=== PATIENT | male | born 1995 | race Caucasian/White ===

== ENCOUNTER 2017-07-24 23:41 | Inpatient (IN) | payer MEDICAID, OTHER ==
[~2017-07-24] VITALS: Ht 182.9 cm; Wt 70.8 kg
[~2017-07-24 23:41] MED LIST: NAPR550 PO
[2017-07-24 23:43] VITALS: O2SAT 100
[2017-07-25] VITALS (18 sets, daily range): BP systolic 100–155; BP diastolic 46–66; PULSE 80–125; RESP 14–20; TEMP 97.7–100.4; O2SAT 100
[2017-07-25 00:05] LABS: I-STAT POTASSIUM 3.2 MMOL/L (3.5-4.9); I-STAT SODIUM 141 MMOL/L (138-146)
[2017-07-25 00:10] LABS: AUTOMATED NEUTROPHIL # 11.1 TH/MM3 (1.8-7.7); BASOPHIL % 0.1 % (0.0-2.0); EOSINOPHIL % 0.2 % (0.0-4.0); HEMATOCRIT 33.6 % (39.0-51.0); LYMPHOCYTE # 3.1 TH/MM3 (1.0-4.8); MEAN CELL VOLUME 91.5 FL (80.0-100.0); MEAN CORPUSCULAR HEMOGLOBIN 33.9 PG (27.0-34.0); MONO % 3.5 % (0.0-8.0); NEUT % 75.2 % (16.0-70.0); PLATELET COUNT 158 TH/MM3 (150-450); RED BLOOD COUNT 3.67 MIL/MM3 (4.50-5.90); RED CELL DISTRIBUTION WIDTH 12.1 % (11.6-17.2); WHITE BLOOD COUNT 14.8 TH/MM3 (4.0-11.0)
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
[2017-07-25 00:15] LABS: APTT (PATIENT) 23.9 SEC (24.3-30.1); INTERNATIONAL NORMALIZED RATIO 1.3 RATIO; PROTHROMBIN TIME - PATIENT 13.3 SEC (9.8-11.6)
[2017-07-25 00:17] LABS: HEMO FLAGS AUTO DIFF; MEAN CORPUSCULAR HGB CONC 37.1 % (32.0-36.0)
[2017-07-25] MEDS ORDERED: ceFAZolin 2 GM PREMIX 50 ML ONE (00:21)
[2017-07-25] MEDS ORDERED: HEPARIN SODIUM - SQ 10,000 UNITS/ML VIAL ONE (00:21)
[2017-07-25 00:26] LABS: ALCOHOL LESS THAN 3 MG/DL (0-5)
[2017-07-25] MEDS ORDERED: IOHEXOL 350 MG/ML 10 ML VIAL (for RAD DIAG) IVCONTRAST ONE (00:42)
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
[2017-07-25] MEDS ORDERED: SODIUM BICARBONATE 8.4% INJ 50 MEQ/50 ML SYR ONE (01:15)
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
[2017-07-25] MEDS ORDERED: SODIUM BICARBONATE 8.4% INJ 100 ML ONE (01:17)
[2017-07-25 01:19] LABS: BLOOD GAS BASE EXCESS -8.7 mmol/L (-2-2); BLOOD GAS HCO3 17 mmol/L (22-26); BLOOD GAS METHEMOGLOBIN 1.2 % (0-2); BLOOD GAS O2 HGB SATURATION 97 % (90-100); BLOOD GAS OXYGEN CONTENT 12.6 Vol % (12.0-20.0); BLOOD GAS PCO2 37 mmHg (38-42); BLOOD GAS PO2 291 mmHg (61-120); BLOOD GAS TOTAL HGB 8.7 G/DL (12.0-16.0); TEMP CORR TO 98.6
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
[2017-07-25 01:20] LABS: CRITICAL VALUE YES; OXYGEN DEVICE VENTILATOR; VENT SETTINGS OR SETTING
[2017-07-25 01:20] LABS: PLATELET ESTIMATE SMEAR NORMAL (NORMAL); PLATELET MORPHOLOGY NORMAL (NORMAL); SCAN/DIFF AUTO DIFF CONFIRMED
[2017-07-25 01:21] LABS: FIO2 60 %
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
[2017-07-25] MEDS ORDERED: SODIUM CHLORIDE 0.9% FLUSH 10 ML FLUSH IV FLUSH PRN (01:45)
[2017-07-25] MEDS ORDERED: Post-op Orders (for Pharmacy) XX ONE (01:45)
[2017-07-25] MEDS ORDERED: NALOXONE HCL 0.4 MG/ML AMP IV PUSH PRN (01:45)
[2017-07-25] MEDS ORDERED: PROPOFOL 1000 MG/100 ML INJ 100 ML IV PRN (01:45)
[2017-07-25] MEDS ORDERED: fentaNYL DRIP 250 ML IV PRN (01:45)
[2017-07-25] MEDS ORDERED: PROPOFOL 500 MG/50 ML INJ 50 ML ONE (02:04)
[2017-07-25] MEDS: metroNIDAZOLE 500 MG INJ 100 ML IV SCH ×3 (02:24→17:40)
[2017-07-25] MEDS: fentaNYL 2,500 MCG/NS 250 ML IV PRN ×2 (02:25→14:15)
[2017-07-25] MEDS: PROPOFOL 1000 MG/100 ML IV PRN ×3 (02:25→21:00)
[2017-07-25] MEDS: LACTATED RINGER'S 1000 ML INJ 1,000 ML IV SCH ×3 (02:26→21:08)
[2017-07-25] MEDS: PANTOPRAZOLE SODIUM 40 MG VIAL IV PUSH SCH (02:26)
--- NOTE | 2017-07-25 02:29 | RADRPT ---
EXAM DATE/TIME: 07/25/2017 01:34 [facility] COMPARISON: No previous studies available for comparison. INDICATIONS : Evaluate for foreign body. Emergency abdominal surgery without instrument count. MEDICAL HISTORY : None. SURGICAL HISTORY : None. ENCOUNTER: Initial ACUITY: 1 day PAIN SCORE: Non-responsive. LOCATION: Bilateral abdomen FINDINGS: 2 new clips and a Felix-Galindo drain in the left upper quadrant. Gastric tube tip and side-port pro ject within the stomach. Multiple skin addie from vertical midline incision. Right femoral cathet er tip at the inferior L4 level. No dilated loops of small or large bowel. The visualized lower cameron gs are clear. CONCLUSION: Postsurgical findings from splenectomy. No retained instruments seen. Humble Guillen MD on July 25, 2017 at 2:27 Board Certified Radiologist. This report was verified electronically.
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
[2017-07-25 03:48] LABS: AUTOMATED NEUTROPHIL # 15.6 TH/MM3 (1.8-7.7); BASOPHIL % 0.1 % (0.0-2.0); EOSINOPHIL % 0.2 % (0.0-4.0); HEMATOCRIT 25.2 % (39.0-51.0); LYMPH % 7.6 % (9.0-44.0); LYMPHOCYTE # 1.4 TH/MM3 (1.0-4.8); MEAN CELL VOLUME 88.7 FL (80.0-100.0); MEAN CORPUSCULAR HEMOGLOBIN 30.8 PG (27.0-34.0); MEAN CORPUSCULAR HGB CONC 34.7 % (32.0-36.0); MONO % 6.8 % (0.0-8.0); NEUT % 85.3 % (16.0-70.0); PLATELET COUNT 81 TH/MM3 (150-450); RED BLOOD COUNT 2.84 MIL/MM3 (4.50-5.90); RED CELL DISTRIBUTION WIDTH 13.4 % (11.6-17.2); WHITE BLOOD COUNT 18.3 TH/MM3 (4.0-11.0)
[2017-07-25 03:50] LABS: HEMO FLAGS AUTO DIFF
[2017-07-25 03:56] LABS: INTERNATIONAL NORMALIZED RATIO 1.5 RATIO; PROTHROMBIN TIME - PATIENT 15.2 SEC (9.8-11.6)
[2017-07-25 04:15] LABS: BICARBONATE 27.8 MEQ/L (21.0-32.0); POTASSIUM 4.2 MEQ/L (3.5-5.1)
--- NOTE | 2017-07-25 04:19 | RADRPT ---
EXAM DATE/TIME: 07/25/2017 02:27 [facility] COMPARISON: CHEST SINGLE AP, July 24, 2017, 23:40. INDICATIONS : Central line, left chest tube placement MEDICAL HISTORY : None. SURGICAL HISTORY : None. ENCOUNTER: Initial ACUITY: 1 day PAIN SCORE: Non-responsive. LOCATION: Bilateral chest FINDINGS: ET tube tip although the leo. Gastric tube traverses the field of view heart chest projects in th e mid upper chest. Left subclavian sheath in place. No evidence pneumothorax. The lungs are symmet rically aerated and clear. The heart is normal size. CONCLUSION: Left chest drainage tube in place. No pneumothorax seen. Humble Guillen MD on July 25, 2017 at 4:17 Board Certified Radiologist. This report was verified electronically.
[2017-07-25 04:30] LABS: BANDS 26 % (0-6); METAMYELOCYTES 2 % (0-1); NEUTROPHIL # MANUAL DIFF 16.1 TH/MM3 (1.8-7.7); POLYS (SEG NEUTROPHILS) 60 % (16-70); WBC DIFF SAMPLE 100
[2017-07-25 04:31] LABS: PLATELET ESTIMATE SMEAR LOW (NORMAL); PLATELET MORPHOLOGY ENLARGED (NORMAL); SCAN/DIFF FINAL DIFF MANUAL
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
[2017-07-25] MEDS ORDERED: SODIUM PHOSPHATE INJ 30 MMOL in SODIUM CHLOR 0.9% 250 ML INJ 240 ML IV PRN (06:45)
[2017-07-25] MEDS ORDERED: POTASSIUM PHOSPHATE INJ 30 MMOL in SODIUM CHLOR 0.9% 250 ML INJ 250 ML IV PRN (06:45)
[2017-07-25] MEDS ORDERED: POTASSIUM CHLOR 40 MEQ PREMIX 100 ML IV PRN ×2 (06:45)
[2017-07-25] MEDS ORDERED: POTASSIUM CHLOR 20 MEQ PREMIX 100 ML IV PRN ×2 (06:45)
[2017-07-25] MEDS ORDERED: POTASSIUM PHOSPHATE MONOBASIC 500 MG TAB PO/TUBE PRN (06:45)
[2017-07-25] MEDS ORDERED: PHENYLEPHRINE HCL 10 MG/ML VIAL ONE (06:45)
[2017-07-25] MEDS ORDERED: MAGNESIUM SULFATE INJ 4 GM in SODIUM CHLORIDE 0.9% INJ 92 ML IV PRN (06:45)
[2017-07-25] MEDS ORDERED: POTASSIUM PHOSPHATE MONOBASIC 500 MG TAB PO PRN (06:45)
[2017-07-25] MEDS ORDERED: MAGNESIUM OXIDE 400 MG TAB PO PRN (06:45)
[2017-07-25] MEDS ORDERED: MAGNESIUM SULFATE INJ 2 GM in SODIUM CHLORIDE 0.9% INJ 96 ML IV PRN (06:45)
[2017-07-25] MEDS ORDERED: POTASSIUM CHLORIDE 20 MEQ PWD PACKET PO PRN (06:45)
[2017-07-25 07:02] LABS: HEMATOCRIT 28.6 % (39.0-51.0)
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
[2017-07-25 07:15] LABS: REVIEW FLAG FINAL
[2017-07-25 07:58] LABS: BACTERIA, URINE RARE /hpf; BLOOD, URINE MOD (NEG); COMMENT (UR) CATH-CULTURE IND; CULTURE IF INDICATED CATH CULTURE IND; GLUCOSE,URINE NEG (NEG); HYALINE CAST, URINE 4 /lpf (RARE); KETONE, URINE NEG (NEG); MUCUS URINE FEW /lpf (OCC); NITRITE,URINE NEG (NEG); PH, URINE 5.5 (5.0-8.5); SQUAMOUS EPITHELIAL CELL URINE <1 /hpf (0-5); URINE COLOR YELLOW (YELLW/STRAW)
[2017-07-25] MEDS ORDERED: SODIUM CHLOR 0.9% 1000 ML INJ 1,000 ML IV SCH ×2 (08:15→14:15)
[2017-07-25 08:24] LABS: BICARBONATE 25.2 MEQ/L (21.0-32.0); MAGNESIUM 1.4 MG/DL (1.5-2.5); POTASSIUM 4.6 MEQ/L (3.5-5.1); TOTAL BILIRUBIN ADULT 0.3 MG/DL (0.2-1.0)
[2017-07-25] MEDS: SODIUM CHLORIDE 0.9% FLUSH 10 ML FLUSH IV FLUSH SCH ×2 (09:00→20:17)
[2017-07-25] MEDS ORDERED: RESP: ALBUTEROL 2.5 MG/IPRATROPIUM 0.5 MG NEB (PRN) NEB (09:15)
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
[2017-07-25] MEDS ORDERED: PHENYLEPH/NS 1000 MCG/10 ML SYR IV ONE (12:00)
[2017-07-25] MEDS ORDERED: ROCURONIUM INJ 50 MG/5 ML SYRINGE IV PUSH ONE (12:00)
[2017-07-25] MEDS ORDERED: MIDAZOLAM HCL 2 MG/2 ML VIAL IV ONE (12:00)
[2017-07-25] MEDS ORDERED: PROPOFOL 200 MG/20 ML AMP IV ONE (12:00)
[2017-07-25] MEDS ORDERED: SUCCINYLCHOLINE CHLORIDE 100 MG/5 ML SYRINGE IV PUSH ONE (12:00)
[2017-07-25] MEDS ORDERED: NORMOSOL R INJ 2,000 ML IV ONE (12:00)
[2017-07-25] MEDS ORDERED: LIDOCAINE HCL 1% PF 5 ML SYRINGE OTHER ONE (12:00)
[2017-07-25] MEDS: RESP: ALBUTEROL 2.5 MG/IPRATROPIUM 0.5 MG NEB (SCH) NEB ×3 (12:31→20:09)
--- NOTE | 2017-07-25 13:30 | RADRPT ---
EXAM DATE/TIME: 07/25/2017 11:38 [facility] COMPARISON: No previous studies available for comparison. INDICATIONS : Laceration MEDICAL HISTORY : None. SURGICAL HISTORY : None. ENCOUNTER: Initial ACUITY: 2 days PAIN SCORE: Non-responsive. LOCATION: Left ankle FINDINGS: Three view exam was performed of the left ankle. The bony structures are in normal alignment. No ev idence of fracture, dislocation, or significant soft tissue swelling. The ankle mortise is intact. No radiopaque foreign bodies are seen. Bony mineralization is normal. CONCLUSION: No evidence of acute bony abnormality or radiopaque foreign body. Jonatan Moss MD on July 25, 2017 at 13:27 Board Certified Radiologist. This report was verified electronically.
--- NOTE | 2017-07-25 13:34 | RADRPT ---
EXAM DATE/TIME: 07/25/2017 11:28 [facility] COMPARISON: No previous studies available for comparison. INDICATIONS : Laceration. MEDICAL HISTORY : None. SURGICAL HISTORY : None. ENCOUNTER: Initial ACUITY: 2 days PAIN SCORE: Non-responsive. LOCATION: Left foot FINDINGS: Three view examination of the left foot demonstrates no soft tissue swelling, dislocation, or fractur e. The tarsal bones appear intact. The interphalangeal and metatarsophalangeal joints are intact. The calcaneus is intact. Bony mineralization is normal. CONCLUSION: 1. No radiopaque foreign bodies or acute bony fracture. No significant bony erosion. Petr Ko MD on July 25, 2017 at 13:31 Board Certified Radiologist. This report was verified electronically.
[2017-07-25] MEDS ORDERED: TERBUTALINE INJ 1 MG/ML AMP SQ PRN (14:15)
[2017-07-25] MEDS: PHENYLEPHRINE 40 MG in D5W 500 ML IV PRN (15:25)
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
[2017-07-25] MEDS: CHLORHEXIDINE 0.12% (ORAL KIT) 15 ML CUP MT SCH (20:17)
[2017-07-26] VITALS (19 sets, daily range): BP systolic 113–157; BP diastolic 43–73; PULSE 64–106; RESP 14–20; TEMP 98.2–100.4; O2SAT 100
[2017-07-26] MEDS: fentaNYL 2,500 MCG/NS 250 ML IV PRN ×2 (01:00→10:16)
[2017-07-26] MEDS: PANTOPRAZOLE SODIUM 40 MG VIAL IV PUSH SCH (03:07)
[2017-07-26] MEDS: RESP: ALBUTEROL 2.5 MG/IPRATROPIUM 0.5 MG NEB (SCH) NEB ×4 (03:27→20:14)
[2017-07-26] MEDS: PROPOFOL 1000 MG/100 ML IV PRN ×4 (04:00→21:37)
[2017-07-26 04:17] LABS: AUTOMATED NEUTROPHIL # 7.9 TH/MM3 (1.8-7.7); BASOPHIL % 0.2 % (0.0-2.0); EOSINOPHIL % 0.4 % (0.0-4.0); LYMPH % 12.9 % (9.0-44.0); LYMPHOCYTE # 1.4 TH/MM3 (1.0-4.8); MEAN CELL VOLUME 87.2 FL (80.0-100.0); MEAN CORPUSCULAR HEMOGLOBIN 30.8 PG (27.0-34.0); MEAN CORPUSCULAR HGB CONC 35.3 % (32.0-36.0); MONO % 12.4 % (0.0-8.0); NEUT % 74.1 % (16.0-70.0); PLATELET COUNT 82 TH/MM3 (150-450); RED BLOOD COUNT 2.24 MIL/MM3 (4.50-5.90); RED CELL DISTRIBUTION WIDTH 14.4 % (11.6-17.2); WHITE BLOOD COUNT 10.7 TH/MM3 (4.0-11.0)
[2017-07-26 04:22] LABS: HEMO FLAGS AUTO DIFF
[2017-07-26 04:29] LABS: HEMATOCRIT 19.6 % (39.0-51.0)
[2017-07-26] MEDS: ACETAMINOPHEN 325 MG TAB PO PRN (04:37)
[2017-07-26 04:52] LABS: BICARBONATE 29.1 MEQ/L (21.0-32.0); INDIRECT BILIRUBIN 0.2 MG/DL (0.0-0.8); TOTAL BILIRUBIN ADULT 0.3 MG/DL (0.2-1.0)
[2017-07-26] MEDS: PHENYLEPHRINE 40 MG in D5W 500 ML IV PRN ×3 (05:00)
--- NOTE | 2017-07-26 05:24 | RADRPT ---
EXAM DATE/TIME: 07/26/2017 04:02 [facility] COMPARISON: CHEST SINGLE AP, July 25, 2017, 2:27. INDICATIONS : Pneumothorax MEDICAL HISTORY : None. SURGICAL HISTORY : None. ENCOUNTER: Subsequent ACUITY: 2 days PAIN SCORE: Non-responsive. LOCATION: Bilateral chest FINDINGS: Single AP view of the chest. Nasogastric tube, endotracheal tube, and left sided chest tube remain in place. Lungs are clear. No evidence of pleural effusion or pneumothorax. Left subclavian vascular sh eath also remains in place. CONCLUSION: Left-sided chest tube in place. No evidence of pneumothorax. Eulalio Werner MD on July 26, 2017 at 5:22 Board Certified Radiologist. This report was verified electronically.
[2017-07-26 06:51] LABS: CALCIUM-PROTEIN CORRECTED 8.9 MG/DL (8.5-10.1)
[2017-07-26 07:08] LABS: PLATELET ESTIMATE SMEAR LOW (NORMAL); PLATELET MORPHOLOGY NORMAL (NORMAL); SCAN/DIFF AUTO DIFF CONFIRMED
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
[2017-07-26] MEDS ORDERED: SODIUM CHLOR 0.9% 250 ML INJ 250 ML IV ONE ×2 (07:30→12:00)
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
[2017-07-26] MEDS: CHLORHEXIDINE 0.12% (ORAL KIT) 15 ML CUP MT SCH ×2 (08:00→20:34)
[2017-07-26 10:19] LABS: HEMATOCRIT 24.3 % (39.0-51.0)
[2017-07-26 10:22] LABS: REVIEW FLAG FINAL
[2017-07-26 10:54] LABS: BLOOD GAS BASE EXCESS 3.9 mmol/L (-2-2); BLOOD GAS CARBOXYHEMOGLOBIN 1.7 % (0-4); BLOOD GAS HCO3 29 mmol/L (22-26); BLOOD GAS METHEMOGLOBIN 1.2 % (0-2); BLOOD GAS O2 HGB SATURATION 97 % (90-100); BLOOD GAS PCO2 48 mmHg (38-42); BLOOD GAS PO2 217 mmHg (61-120); BLOOD GAS TOTAL HGB 8.5 G/DL (12.0-16.0); CRITICAL VALUE NO; DRAW SITE ART LINE; FIO2 40 %; NUMBER OF ARTERIAL PUNCTURES 0; OXYGEN DEVICE VENTILATOR; TEMP CORR TO 98.6; VENT SETTINGS AC/14/500/PEE5
[2017-07-26 10:55] LABS: STAT NO; ULNAR PULSE PRESENT
[2017-07-26] MEDS ORDERED: ACETAMINOPHEN 1000 MG/100 ML 0 ML IV ONE (10:55)
[2017-07-26] MEDS ORDERED: HYDROmorphone HCL PF 2 MG/ML VIAL ONE (10:55)
[2017-07-26] MEDS ORDERED: VANCOMYCIN HCL 1000 MG VIAL ONE (11:13)
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
[2017-07-26] MEDS ORDERED: GENTAMICIN SULFATE 80 MG/2 ML VIAL ONE ×2 (11:17→11:18)
[2017-07-26] MEDS ORDERED: ceFAZolin INJ 1,000 MG VIAL ONE (11:40)
[2017-07-26] MEDS ORDERED: ACETAMINOPHEN/HYDROcodone 325 MG/10 MG TAB PO PRN (13:00)
[2017-07-26] MEDS ORDERED: BACITRACIN TOP OINT 15 GM TUBE ONE (13:05)
--- NOTE | 2017-07-26 13:06 | PD.OP ---
cc: Harsha Carver MD Operative Report Date of Surgery: Jul 26, 2017 Preoperative Diagnosis: Comminuted right humerus shaft fracture, open deep laceration left foot Postoperative Diagnosis: Comminuted right humerus shaft fracture, open deep laceration left foot Procedure: Open reduction internal fixation left humerus shaft fracture, irrigation debridement left foot, complex closure left foot wound 12 cm length Surgeon: Harsha Carver Mop Worker(s): KAVYA Gomez PA-C The surgical procedure was assisted by my physician showroom sales assistant. My P.A. presence was necessary throughout this case for the manipulation and positioning of the surgical extremity. My P.A. was assisting me throughout the duration of this procedure. The skill set of a physician showroom sales assistant was medically necessary to complete this procedure. During the surgical case the surgical aides teacher was working at the back table and the physician showroom sales assistant was directly assisting me. Operation and Findings: Patient was seen and evaluated preoperatively. Patient is intubated and sedated intensive care unit. Treatment options were discussed regarding humerus fracture including surgical and nonsurgical treatments. After detailed discussion of risk and benefits of procedure patient family wishes to proceed with surgery. Risks of surgery include bleeding, infection, nonunion, malunion , painful hardware, loss of motion of shoulder and elbow, weakness and numbness of arm, as well as medical competitions including blood clots stroke and . Patient was brought to operating room and placed on the OR table. GETA was administered by anesthesiologist. Right arm and left foot were prepped with alcohol followed by Hibiclens and draped usual sterile fashion. Timeout procedure was performed. IV antibiotics were given prior to incision. A standard anterior approach was utilized. Subcutaneous tissues was dissected with Bovie. Cephalic vein was identified and protected. Proximally the deltopectoral interval was opened. Distally the brachialis was split. The fracture was identified. There was an area of comminution. Soft tissue was removed from the fracture site. Fracture site was cleaned with curettes. At this point the fracture was reduced using fracture tenaculums. There was a posterior fragment. This keyed into anatomic alignment. 2.7 cortical lag screws were used to compress this fracture fragment. Multiplanar fluoroscopy confirmed excellent of fracture. A Synthes 3.5 plate was contoured to fit the humerus. Plate was provisionally held the bone with K wires. 3.5 cortical screws were placed on each side of the fracture. The screws were placed to add compression to fracture. Multiple screws were placed in each side of the fracture. All screws were predrilled and premeasured for appropriate length. Final fluoroscopy revealed excellent alignment of fracture with well-placed hardware. Incision was thoroughly irrigated. Fascia was closed with #1 Vicryl , subcutaneous tissues closed with 3-0 Vicryl, and skin was closed with addie. Next attention was turned towards the left foot. There was a large stellate laceration along the plantar aspect of the foot. The wound was thoroughly irrigated. There was some areas of necrotic muscle. Skin subcutaneous tissue fascia and muscle were sharply debrided with scalpel and rongeur. An excisional debridement was performed. The wound was now thoroughly irrigated. Overall the wound appeared to be clean. At this point attention was turned to closure. Subcutaneous tissues reapproximated with 3-0 PDS. The skin was now closed with 3-0 nylon. A combination of retention suture and vertical mattress suture were utilized. Sterile dressings were applied. Needle and sponge counts were correct. Patient was placed into a sling, and then transferred back to intensive care. Harsha Carver MD Jul 26, 2017 13:06
--- NOTE | 2017-07-26 13:34 | RADRPT ---
EXAM DATE/TIME: 07/26/2017 12:46 [facility] COMPARISON: No previous studies available for comparison. INDICATIONS : ORIF right humerus. MEDICAL HISTORY : None. SURGICAL HISTORY : None. ENCOUNTER: Subsequent ACUITY: 1 day PAIN SCORE: Non-responsive. LOCATION: Right humerus. FINDINGS: Status post internal fixation of the humerus. There is good position and alignment of the fracture fr agments. The hardware appears to be grossly intact. CONCLUSION: Good position and alignment on this postoperative study. Robby Pimentel MD on July 26, 2017 at 13:31 Board Certified Radiologist. This report was verified electronically.
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
[2017-07-26] MEDS: ERGOCALCIFEROL (VIT D2) 50,000 UNIT CAP PO SCH (15:00)
[2017-07-26] MEDS ORDERED: DEXAMETHASONE SOD PHOS 4 MG/ML VIAL IV ONE (15:15)
[2017-07-26] MEDS: LACTATED RINGER'S 1000 ML INJ 1,000 ML IV SCH ×2 (16:50→18:00)
[2017-07-26] MEDS: SODIUM CHLORIDE 0.9% FLUSH 10 ML FLUSH IV FLUSH SCH ×2 (20:33→21:37)
[2017-07-26] MEDS: ceFAZolin 2 GM PREMIX 50 ML IV SCH (21:37)
[2017-07-27] VITALS (16 sets, daily range): BP systolic 109–138; BP diastolic 51–73; PULSE 70–90; RESP 14; TEMP 98.1–98.6; O2SAT 100
[2017-07-27] MEDS: LACTATED RINGER'S 1000 ML INJ 1,000 ML IV SCH ×3 (01:24→18:17)
[2017-07-27] MEDS: PANTOPRAZOLE SODIUM 40 MG VIAL IV PUSH SCH (01:24)
[2017-07-27] MEDS: PROPOFOL 1000 MG/100 ML IV PRN ×5 (01:24→22:32)
[2017-07-27] MEDS: fentaNYL 2,500 MCG/NS 250 ML IV PRN ×2 (01:24→14:17)
[2017-07-27] MEDS: RESP: ALBUTEROL 2.5 MG/IPRATROPIUM 0.5 MG NEB (SCH) NEB ×4 (04:15→20:42)
[2017-07-27] MEDS: ceFAZolin 2 GM PREMIX 50 ML IV SCH ×3 (05:04→20:15)
--- NOTE | 2017-07-27 05:19 | RADRPT ---
EXAM DATE/TIME: 07/27/2017 04:01 [facility] COMPARISON: CHEST SINGLE AP, July 26, 2017, 4:02. INDICATIONS : Pneumothorax. MEDICAL HISTORY : None. SURGICAL HISTORY : None. ENCOUNTER: Subsequent ACUITY: 3 days PAIN SCORE: Non-responsive. LOCATION: Bilateral chest FINDINGS: Single AP view of the chest. Endotracheal tube, nasogastric tube, left sided chest tube remain in neli ce. No evidence of pneumothorax. Lungs are clear. No pleural effusion. Cardiomediastinal silhouette w ithin normal limits. CONCLUSION: Left-sided chest tube again seen. No evidence of pneumothorax. Eulalio Werner MD on July 27, 2017 at 5:17 Board Certified Radiologist. This report was verified electronically.
--- NOTE | 2017-07-27 07:24 | PD.ORT.PN ---
Subjective Subjective Remarks POD 1 s/p ORIF right humerus POD 1 s/p I&D and wound closure left foot intubated/sedated. no changes Objective Vitals Vital Signs Date Time Temp Pulse Resp B/P (MAP) Pulse Ox O2 Delivery O2 Flow Rate FiO2 07/27/17 06:00 75 07/27/17 04:15 100 40 07/27/17 04:00 98.1 70 14 116/57 (76) 100 07/27/17 04:00 40 07/27/17 04:00 70 07/27/17 02:00 70 07/27/17 01:55 100 40 07/27/17 00:00 98.6 76 14 118/55 (76) 100 07/27/17 00:00 76 07/27/17 00:00 40 07/26/17 22:00 106 07/26/17 20:14 100 40 07/26/17 20:00 98.9 94 20 143/73 (96) 100 Arterial Line 07/26/17 20:00 94 07/26/17 20:00 40 07/26/17 19:00 100 Mechanical Ventilator 40 07/26/17 18:00 64 07/26/17 16:55 100 40 07/26/17 16:00 40 07/26/17 16:00 98.2 66 18 115/57 (76) 100 07/26/17 16:00 66 07/26/17 14:30 72 07/26/17 14:30 98.3 77 18 113/55 (74) 100 07/26/17 12:00 40 07/26/17 10:00 74 07/26/17 10:00 72 153/56 07/26/17 09:39 98.3 70 16 146/53 100 07/26/17 08:40 98.4 68 16 157/58 100 07/26/17 08:00 98.4 72 14 124/53 (76) 100 07/26/17 08:00 72 07/26/17 08:00 40 07/26/17 07:50 100 40 I/O 07/26/17 07/26/17 07/26/17 07/27/17 07/27/17 07/27/17 07:00 15:00 23:00 07:00 15:00 23:00 Intake Total 1750 ml 1286 ml 1328 ml Output Total 913 ml 1090 ml 570 ml 2350 ml Balance 837 ml 196 ml 758 ml -2350 ml Intake IV Total 1350 ml 636 ml 1328 ml Packed Cells 400 ml Other 650 ml Output Urine Total 775 ml 900 ml 450 ml 2100 ml Gastric Drainage Total 100 ml Chest Tube Drainage Total 48 ml 50 ml 70 ml Drainage Total 90 ml 40 ml 70 ml 80 ml Estimated Blood Loss 150 ml # Bowel Movements 0 0 Result Diagram: 07/26/17 1000 07/26/17 0400 Imaging Last 24 hours Impressions Thoracic Spine CT 07/25/172016 Signed Impressions: Service Date/Time: July 00:03 - CONCLUSION: Negative trauma CT thoracic spine. Humble Guillen MD Maxillofacial CT 07/25/172016 Signed Impressions: Service Date/Time: Monday, July 24, 2017 23:56 - CONCLUSION: LeFort III bilateral facial fractures Humble Guillen MD Lumbar Spine CT 07/25/172016 Signed Impressions: Service Date/Time: July 00:00 - CONCLUSION: 1. No evidence of lumbar fracture. 2. Mildly comminuted fracture of the anterior cortex of the left sacral ala. Humble Guillen MD Chest CT 07/25/172016 Signed Impressions: Service Date/Time: July 00:03 - CONCLUSION: 1. Moderate left pneumothorax without evidence of mediastinal shift. 2. Nondisplaced fractures of the left 7th and 8th ribs. Humble Guillen MD Cervical Spine CT 07/25/172016 Signed Impressions: Service Date/Time: Monday, July 24, 2017 23:56 - CONCLUSION: Negative trauma CT cervical spine other than mild reversal of the upper cervical lordosis. Humble Guillen MD Abdomen/Pelvis CT 07/25/172016 Signed Impressions: Service Date/Time: July 00:00 - CONCLUSION: 1. Grade 5 injury of the spleen with shattered appearance and significant hemoperitoneum. 2. Moderate left pneumothorax. 3. Fractures of the left pubic bone (horizontal ) and anterior cortex of the left sacral ala. Humble Guillen MD Humerus X-Ray 07/25/17 0000 Signed Impressions: Service Date/Time: Monday, July 24, 2017 23:40 - CONCLUSION: Proximal humeral fracture with displacement and overriding. Humble Guillen MD Head CT 07/25/17 0000 Signed Impressions: Service Date/Time: Monday, July 24, 2017 23:56 - CONCLUSION: 1. No acute findings in the brain. 2. Multiple facial bone fractures including bilateral maxilla and bilateral inferior orbits. Possible pterygoid plate fractures. Facial bone CT to follow. Humble Guillen MD Chest X-Ray 07/25/17 0000 Signed Impressions: Service Date/Time: July 02:27 - CONCLUSION: Left chest drainage tube in place. No pneumothorax seen. Humble Guillen MD Ankle X-Ray 07/25/17 0000 Signed Impressions: Service Date/Time: Monday, July 24, 2017 23:40 - CONCLUSION: No evidence of recent bony injury. 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 No retained instruments seen. Humble Guillen MD Pelvis X-Ray 07/24/17 2345 Signed Impressions: Service Date/Time: Monday, July 24, 2017 23:40 - CONCLUSION: No fracture seen. Humble Guillen MD Chest X-Ray 07/24/17 2345 Signed Impressions: Service Date/Time: Monday, July 24, 2017 23:40 - CONCLUSION: The lungs are clear. Humble Guillen MD Objective Remarks RUE: dressings clean and dry. intact. +sling. good cap refill. LLE: dressings clean and dry. intact. Assessment & Plan Assessment and Plan 1) Right Proximal Humerus Fx s/p ORIF - POD 1 -NWB -maintain sling -daily dressing changes POD 2. ok to transition to xeroform/primapore if minimal drainage -therapy for PROM of shoulder and elbow 2) Left Foot Laceration s/p I&D and closure - POD 1 -daily dressing changes POD 2 with bacitracin/adaptik/4x4/DWAYNE -NWB until wound healed -ortho surgeries complete. Sean Ragland/Roll Mechanic PA Jul 27, 2017 07:24
[2017-07-27 07:44] LABS: AUTOMATED NEUTROPHIL # 12.1 TH/MM3 (1.8-7.7); HEMATOCRIT 23.9 % (39.0-51.0); HEMO FLAGS DIFF FINAL; LYMPH % 2.4 % (9.0-44.0); LYMPHOCYTE # 0.3 TH/MM3 (1.0-4.8); MEAN CORPUSCULAR HGB CONC 34.5 % (32.0-36.0); MONO % 6.3 % (0.0-8.0); NEUT % 91.3 % (16.0-70.0); PLATELET COUNT 104 TH/MM3 (150-450); RED BLOOD COUNT 2.74 MIL/MM3 (4.50-5.90); RED CELL DISTRIBUTION WIDTH 14.6 % (11.6-17.2); WHITE BLOOD COUNT 13.3 TH/MM3 (4.0-11.0)
[2017-07-27] MEDS ORDERED: MICROFIBRILLAR COLLAGEN HEMOSTAT 1 GM PKT ONE (07:46)
[2017-07-27] MEDS ORDERED: BACITRACIN TOP OINT 15 GM TUBE ONE (07:46)
[2017-07-27] MEDS ORDERED: ceFAZolin INJ 1,000 MG VIAL ONE (07:46)
[2017-07-27] MEDS ORDERED: LIDOCAINE 1%/EPINEPHrine 1:100,000 SOLN 20 ML VIAL ONE ×2 (07:46→07:49)
[2017-07-27] MEDS ORDERED: LIDOCAINE 2%/EPINEPHrine PF 1:200,000 20ML SDV ONE (07:50)
[2017-07-27] MEDS ORDERED: ARTIFICIAL TEARS OPTH OINT 3.5 APPLIC/3.5 GM TUBO ONE (08:03)
[2017-07-27 08:16] LABS: ALKALINE PHOSPHATASE 132 U/L (45-117); ALT (GPT) 35 U/L (9-52); ANION GAP 5 MEQ/L (5-15); AST (GOT) 74 U/L (15-39); BICARBONATE 28.7 MEQ/L (21.0-32.0); BLOOD UREA NITROGEN 9 MG/DL (7-18); CHLORIDE 106 MEQ/L (98-107); GLOMERULAR FILTRATION RATE 145 ML/MIN (>89); POTASSIUM 3.9 MEQ/L (3.5-5.1); SODIUM (NA) 140 MEQ/L (136-145); TOTAL BILIRUBIN ADULT 0.4 MG/DL (0.2-1.0)
[2017-07-27] MEDS ORDERED: CHLORHEXIDINE GLUCONATE 0.12% 15 ML CUP ONE (08:26)
[2017-07-27] MEDS: CHLORHEXIDINE 0.12% (ORAL KIT) 15 ML CUP MT SCH ×2 (08:48→20:15)
[2017-07-27] MEDS: SODIUM CHLORIDE 0.9% FLUSH 10 ML FLUSH IV FLUSH SCH ×2 (09:00→20:15)
[2017-07-27] MEDS: CHOLECALCIFEROL (VIT D3) 1000 UNIT TAB PO SCH (09:00)
--- NOTE | 2017-07-27 09:36 | EKG ---
Date Performed: 07/26/2017 Time Performed: 05:24:32 PTAGE: 21 years EKG: Sinus rhythm . Normal ECG NO PREVIOUS TRACING DOCTOR: Najma Gomez Interpretating Date/Time 07/27/2017 09:34:50
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
[2017-07-27] MEDS ORDERED: PROPOFOL 200 MG/20 ML AMP IV ONE (12:00)
[2017-07-27] MEDS ORDERED: ROCURONIUM INJ 50 MG/5 ML SYRINGE IV PUSH ONE (12:00)
[2017-07-27] MEDS ORDERED: ONDANSETRON HCL 4 MG/2 ML VIAL IV ONE (12:00)
[2017-07-27] MEDS ORDERED: DEXAMETHASONE SOD PHOS 4 MG/ML VIAL IV ONE (12:00)
[2017-07-27] MEDS ORDERED: LIDOCAINE HCL 1% PF 5 ML SYRINGE OTHER ONE (12:00)
[2017-07-27] MEDS ORDERED: LACTATED RINGER'S 1000 ML INJ 1,000 ML IV ONE (12:00)
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
[2017-07-27] MEDS ORDERED: DO NOT ADM ANY ANTICOAGULANT DRUGS PRN (14:45)
[2017-07-27] MEDS: methylPREDNISolone SOD SUCC 125 MG/2 ML VIAL IV SCH ×2 (16:05→20:15)
[2017-07-27 17:49] LABS: AUTOMATED NEUTROPHIL # 13.6 TH/MM3 (1.8-7.7); BASOPHIL % 0.1 % (0.0-2.0); HEMATOCRIT 23.1 % (39.0-51.0); HEMO FLAGS DIFF FINAL; LYMPH % 3.4 % (9.0-44.0); LYMPHOCYTE # 0.5 TH/MM3 (1.0-4.8); MEAN CELL VOLUME 87.7 FL (80.0-100.0); MEAN CORPUSCULAR HEMOGLOBIN 29.6 PG (27.0-34.0); MEAN CORPUSCULAR HGB CONC 33.7 % (32.0-36.0); MONO % 5.8 % (0.0-8.0); NEUT % 90.7 % (16.0-70.0); PLATELET COUNT 125 TH/MM3 (150-450); RED BLOOD COUNT 2.64 MIL/MM3 (4.50-5.90); RED CELL DISTRIBUTION WIDTH 14.7 % (11.6-17.2)
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
[2017-07-28] VITALS (18 sets, daily range): BP systolic 120–160; BP diastolic 66–80; PULSE 72–122; RESP 14–21; TEMP 98–100.3; O2SAT 93–100
[2017-07-28] MEDS: methylPREDNISolone SOD SUCC 125 MG/2 ML VIAL IV SCH (02:17)
[2017-07-28] MEDS: PANTOPRAZOLE SODIUM 40 MG VIAL IV PUSH SCH (02:17)
[2017-07-28] MEDS: fentaNYL 2,500 MCG/NS 250 ML IV PRN (02:39)
[2017-07-28] MEDS: ceFAZolin 2 GM PREMIX 50 ML IV SCH ×2 (03:12→13:15)
[2017-07-28] MEDS: RESP: ALBUTEROL 2.5 MG/IPRATROPIUM 0.5 MG NEB (SCH) NEB ×4 (04:17→22:00)
[2017-07-28] MEDS: PROPOFOL 1000 MG/100 ML IV PRN (05:00)
[2017-07-28] MEDS ORDERED: FUROSEMIDE 20 MG/2 ML VIAL IV PUSH STA (07:15)
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
[2017-07-28] MEDS: CHLORHEXIDINE 0.12% (ORAL KIT) 15 ML CUP MT SCH ×2 (08:00→20:00)
[2017-07-28] MEDS: CHOLECALCIFEROL (VIT D3) 1000 UNIT TAB PO SCH (09:00)
[2017-07-28] MEDS ORDERED: methylPREDNISolone ACETATE 80 MG/ML VIAL IM ONE (09:00)
[2017-07-28] MEDS: SODIUM CHLORIDE 0.9% FLUSH 10 ML FLUSH IV FLUSH SCH ×2 (09:00→21:00)
--- NOTE | 2017-07-28 09:08 | PD.ORT.PN ---
Subjective Subjective Remarks Patient is intubated and sedated. His mother is at bedside. Objective Vitals Vital Signs Date Time Temp Pulse Resp B/P (MAP) Pulse Ox O2 Delivery O2 Flow Rate FiO2 07/28/17 07:55 100 28 07/28/17 07:35 100 40 07/28/17 06:00 94 07/28/17 04:17 100 40 07/28/17 04:00 98.8 72 14 120/66 (84) 100 07/28/17 04:00 72 07/28/17 04:00 40 07/28/17 02:00 72 07/28/17 00:40 100 40 07/28/17 00:00 80 07/28/17 00:00 98.3 80 14 132/66 (88) 100 07/28/17 00:00 40 07/27/17 22:00 81 07/27/17 20:42 100 40 07/27/17 20:00 81 07/27/17 20:00 98.2 90 14 138/73 (94) 100 07/27/17 20:00 40 07/27/17 18:00 79 07/27/17 16:00 40 07/27/17 16:00 86 07/27/17 16:00 98.1 86 14 136/63 (87) 100 07/27/17 15:55 100 40 07/27/17 14:00 80 07/27/17 12:40 100 100 I/O 07/27/17 07/27/17 07/27/17 07/28/17 07/28/17 07/28/17 07:00 15:00 23:00 07:00 15:00 23:00 Intake Total 4901 ml 1800 ml 100 ml 466 ml Output Total 2350 ml 650 ml 1210 ml 855 ml Balance 2551 ml 1150 ml -1110 ml -389 ml Intake IV Total 4901 ml 1800 ml 100 ml 466 ml Output Urine Total 2100 ml 600 ml 1050 ml 825 ml Gastric Drainage Total 100 ml 100 ml 0 ml Chest Tube Drainage Total 70 ml 30 ml 0 ml Drainage Total 80 ml 30 ml 30 ml Estimated Blood Loss 50 ml # Bowel Movements 0 0 Result Diagram: 07/27/17 1653 07/27/17 0604 Imaging Last 24 hours Impressions Thoracic Spine CT 07/25/17 0001 Signed Impressions: Service Date/Time: July 00:03 - CONCLUSION: Negative trauma CT thoracic spine. Humble Guillen MD Maxillofacial CT 07/25/172016 Signed Impressions: Service Date/Time: Monday, July 24, 2017 23:56 - CONCLUSION: LeFort III bilateral facial fractures Humble Guillen MD Lumbar Spine CT 07/25/172016 Signed Impressions: Service Date/Time: July 00:00 - CONCLUSION: 1. No evidence of lumbar fracture. 2. Mildly comminuted fracture of the anterior cortex of the left sacral ala. Humble Guillen MD Chest CT 07/25/172016 Signed Impressions: Service Date/Time: July 00:03 - CONCLUSION: 1. Moderate left pneumothorax without evidence of mediastinal shift. 2. Nondisplaced fractures of the left 7th and 8th ribs. Humble Guillen MD Cervical Spine CT 07/25/172016 Signed Impressions: Service Date/Time: Monday, July 24, 2017 23:56 - CONCLUSION: Negative trauma CT cervical spine other than mild reversal of the upper cervical lordosis. Humble Guillen MD Abdomen/Pelvis CT 07/25/172016 Signed Impressions: Service Date/Time: July 00:00 - CONCLUSION: 1. Grade 5 injury of the spleen with shattered appearance and significant hemoperitoneum. 2. Moderate left pneumothorax. 3. Fractures of the left pubic bone (horizontal ) and anterior cortex of the left sacral ala. Humble Guillen MD Humerus X-Ray 07/25/17 Signed Impressions: Service Date/Time: Monday, July 24, 2017 23:40 - CONCLUSION: Proximal humeral fracture with displacement and overriding. Humble Guillen MD Head CT 07/25/17 Signed Impressions: Service Date/Time: Monday, July 24, 2017 23:56 - CONCLUSION: 1. No acute findings in the brain. 2. Multiple facial bone fractures including bilateral maxilla and bilateral inferior orbits. Possible pterygoid plate fractures. Facial bone CT to follow. Humble Guillne MD Chest X-Ray 07/25/17 Signed Impressions: Service Date/Time: July 02:27 - CONCLUSION: Left chest drainage tube in place. No pneumothorax seen. Humble Guillen MD Ankle X-Ray 07/25/17 0000 Signed Impressions: Service Date/Time: Monday, July 24, 2017 23:40 - CONCLUSION: No evidence of recent bony injury. 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 No retained instruments seen. Humble Guillen MD Pelvis X-Ray 07/24/17 2345 Signed Impressions: Service Date/Time: Monday, July 24, 2017 23:40 - CONCLUSION: No fracture seen. Humble Guillen MD Chest X-Ray 07/24/175 Signed Impressions: Service Date/Time: Monday, July 24, 2017 23:40 - CONCLUSION: The lungs are clear. Humble Guillen MD Objective Remarks RUE: dressings clean and dry. intact. +sling. good cap refill, mild swelling, forarm compartments soft. LLE: dressings clean and dry. intact. Assessment & Plan Assessment and Plan 1) Right Proximal Humerus Fx s/p ORIF - POD 2 -NWB -maintain sling -daily dressing changes POD 2. ok to transition to xeroform/primapore if minimal drainage -therapy for PROM of shoulder and elbow 2) Left Foot Laceration s/p I&D and closure - POD 2 -daily dressing changes POD 2 with bacitracin/adaptik/4x4/DWAYNE -NWB until wound healed 3) facial fractures status post ORIF 4) continue medical care. Harsha Grimm MD Jul 28, 2017 09:08
[2017-07-28] MEDS ORDERED: MORPHINE SULFATE 4 MG/ML INJ IV PUSH PRN (09:15)
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
[2017-07-28] MEDS: fentaNYL 50 MCG/HR PATCH T-DERMAL SCH (10:21)
[2017-07-28] MEDS: LACTATED RINGER'S 1000 ML INJ 1,000 ML IV SCH ×2 (10:30→19:49)
[2017-07-28 12:13] LABS: AUTOMATED NEUTROPHIL # 14.7 TH/MM3 (1.8-7.7); BASOPHIL % 0.2 % (0.0-2.0); EOSINOPHIL % 0.2 % (0.0-4.0); LYMPHOCYTE # 0.3 TH/MM3 (1.0-4.8); MEAN CELL VOLUME 87.5 FL (80.0-100.0); MEAN CORPUSCULAR HEMOGLOBIN 30.5 PG (27.0-34.0); MEAN CORPUSCULAR HGB CONC 34.9 % (32.0-36.0); MONO % 6.7 % (0.0-8.0); NEUT % 90.9 % (16.0-70.0); PLATELET COUNT 199 TH/MM3 (150-450); RED BLOOD COUNT 2.32 MIL/MM3 (4.50-5.90); RED CELL DISTRIBUTION WIDTH 14.7 % (11.6-17.2); WHITE BLOOD COUNT 16.1 TH/MM3 (4.0-11.0)
[2017-07-28 12:29] LABS: HEMO FLAGS AUTO DIFF
[2017-07-28 12:32] LABS: HEMATOCRIT 20.3 % (39.0-51.0)
[2017-07-28] MEDS ORDERED: SODIUM CHLOR 0.9% 250 ML INJ 250 ML IV ONE (12:45)
[2017-07-28 12:46] LABS: PLATELET ESTIMATE SMEAR NORMAL (NORMAL); PLATELET MORPHOLOGY ENLARGED (NORMAL); SCAN/DIFF AUTO DIFF CONFIRMED; TOXIC GRANULATION 2+ (NORMAL)
[2017-07-28 12:47] LABS: TOXIC VACUOLATION PRESENT (NONE SEEN)
[2017-07-28] MEDS: KETOROLAC TROMETHAMINE 30 MG/ML (IVP) VIAL IV PUSH PRN ×2 (16:55→23:11)
[2017-07-28 18:50] LABS: ANION GAP 8 MEQ/L (5-15); AST (GOT) 59 U/L (15-39); BICARBONATE 28.4 MEQ/L (21.0-32.0); BLOOD UREA NITROGEN 19 MG/DL (7-18); CHLORIDE 107 MEQ/L (98-107); GLOMERULAR FILTRATION RATE 167 ML/MIN (>89); POTASSIUM 3.9 MEQ/L (3.5-5.1); SODIUM (NA) 143 MEQ/L (136-145)
[2017-07-28 18:51] LABS: ALT (GPT) 32 U/L (9-52)
[2017-07-28 18:53] LABS: ALKALINE PHOSPHATASE 57 U/L (45-117); TOTAL BILIRUBIN ADULT 0.4 MG/DL (0.2-1.0)
[2017-07-28] MEDS ORDERED: MAGNESIUM HYDROXIDE SUSP 30 ML CUP PO PRN (19:30)
[2017-07-28] MEDS: diphenhydrAMINE HCL 25 MG CAP PO PRN (19:49)
[2017-07-28] MEDS: oxyCODONE/ACETAMINOPHEN 5 MG/325 MG TAB PO PRN (21:04)
[2017-07-28] MEDS: ONDANSETRON HCL 4 MG/2 ML VIAL IV PUSH PRN (21:04)
[2017-07-29] VITALS (13 sets, daily range): BP systolic 139–147; BP diastolic 64–86; PULSE 64–101; RESP 15–21; TEMP 97.5–99.2; O2SAT 90–99
[2017-07-29] MEDS: PANTOPRAZOLE SODIUM 40 MG VIAL IV PUSH SCH (02:11)
[2017-07-29] MEDS: oxyCODONE/ACETAMINOPHEN 5 MG/325 MG TAB PO PRN (02:59)
[2017-07-29] MEDS: diphenhydrAMINE HCL 25 MG CAP PO PRN ×2 (02:59→21:37)
[2017-07-29] MEDS: RESP: ALBUTEROL 2.5 MG/IPRATROPIUM 0.5 MG NEB (SCH) NEB ×2 (04:00→09:25)
[2017-07-29 05:13] LABS: AUTOMATED NEUTROPHIL # 10.9 TH/MM3 (1.8-7.7); BASOPHIL % 0.1 % (0.0-2.0); EOSINOPHIL % 0.1 % (0.0-4.0); HEMATOCRIT 22.9 % (39.0-51.0); HEMO FLAGS DIFF FINAL; LYMPH % 9.8 % (9.0-44.0); LYMPHOCYTE # 1.3 TH/MM3 (1.0-4.8); MEAN CORPUSCULAR HEMOGLOBIN 29.3 PG (27.0-34.0); MEAN CORPUSCULAR HGB CONC 33.3 % (32.0-36.0); MONO % 10.8 % (0.0-8.0); NEUT % 79.2 % (16.0-70.0); PLATELET COUNT 231 TH/MM3 (150-450); RED BLOOD COUNT 2.61 MIL/MM3 (4.50-5.90); RED CELL DISTRIBUTION WIDTH 14.5 % (11.6-17.2); WHITE BLOOD COUNT 13.8 TH/MM3 (4.0-11.0)
[2017-07-29 05:40] LABS: ANION GAP 5 MEQ/L (5-15); AST (GOT) 50 U/L (15-39); BICARBONATE 31.6 MEQ/L (21.0-32.0); BLOOD UREA NITROGEN 24 MG/DL (7-18); CHLORIDE 108 MEQ/L (98-107); GLOMERULAR FILTRATION RATE 164 ML/MIN (>89); POTASSIUM 3.6 MEQ/L (3.5-5.1); SODIUM (NA) 145 MEQ/L (136-145)
[2017-07-29 05:41] LABS: ALT (GPT) 33 U/L (9-52)
[2017-07-29 05:43] LABS: ALKALINE PHOSPHATASE 53 U/L (45-117); TOTAL BILIRUBIN ADULT 0.5 MG/DL (0.2-1.0)
[2017-07-29] MEDS: ONDANSETRON HCL 4 MG/2 ML VIAL IV PUSH PRN ×2 (06:09→11:59)
[2017-07-29] MEDS: KETOROLAC TROMETHAMINE 30 MG/ML (IVP) VIAL IV PUSH PRN ×2 (06:10→11:59)
--- NOTE | 2017-07-29 06:36 | RADRPT ---
EXAM DATE/TIME: 07/29/2017 04:57 [facility] COMPARISON: CHEST SINGLE AP, July 27, 2017, 4:01. INDICATIONS : Short of breath. MEDICAL HISTORY : None. SURGICAL HISTORY : None. ENCOUNTER: Subsequent ACUITY: 3 days PAIN SCORE: 0/10 LOCATION: Bilateral chest FINDINGS: There is a left chest tube in place. No pneumothorax is seen. There is a drain in the left upper quad rant. The heart size is normal. The lungs are clear. CONCLUSION: Left chest tube. Martin France MD on July 29, 2017 at 6:30 Board Certified Radiologist. This report was verified electronically.
--- NOTE | 2017-07-29 06:56 | PD.ORT.PN ---
Subjective Subjective Remarks POD 4 s/p ORIF right humerus POD 4 s/p I&D and wound closure left foot s/p left inferior pubic rami fracture intubated/sedated. no changes Objective Vitals Vital Signs Date Time Temp Pulse Resp B/P (MAP) Pulse Ox O2 Delivery O2 Flow Rate FiO2 07/29/17 06:00 72 07/29/17 04:00 70 07/29/17 04:00 99.0 70 18 139/64 (89) 94 07/29/17 02:00 76 07/29/17 00:00 84 07/29/17 00:00 98.9 76 16 140/74 (96) 93 07/28/17 22:00 87 07/28/17 21:08 98.0 78 16 145/72 94 07/28/17 20:52 98.3 102 19 135/80 100 07/28/17 20:00 88 07/28/17 20:00 98.3 74 16 135/72 (93) 93 07/28/17 18:00 106 07/28/17 16:00 72 07/28/17 16:00 98.4 72 15 149/72 (97) 98 07/28/17 14:00 101 07/28/17 12:00 108 07/28/17 12:00 99.4 108 17 134/76 (95) 96 07/28/17 10:00 110 07/28/17 08:00 122 07/28/17 08:00 100.3 122 21 160/80 (106) 97 07/28/17 07:55 100 28 07/28/17 07:35 100 40 I/O 07/28/17 07/28/17 07/28/17 07/29/17 07/29/17 07/29/17 07:00 15:00 23:00 07:00 15:00 23:00 Intake Total 466 ml 150 ml 450 ml Output Total 855 ml 515 ml 970 ml Balance -389 ml 150 ml -65 ml -970 ml Intake IV Total 466 ml 150 ml 50 ml Packed Cells 400 ml Output Urine Total 825 ml 475 ml 900 ml Gastric Drainage Total 0 ml 0 ml Chest Tube Drainage Total 0 ml 0 ml 50 ml Drainage Total 30 ml 40 ml 20 ml Result Diagram: 07/29/1743007/29/17 0431 Imaging Last 24 hours Impressions Thoracic Spine CT 07/25/172016 Signed Impressions: Service Date/Time: July 00:03 - CONCLUSION: Negative trauma CT thoracic spine. Humble Guillen MD Maxillofacial CT 07/25/172016 Signed Impressions: Service Date/Time: Monday, July 24, 2017 23:56 - CONCLUSION: LeFort III bilateral facial fractures Humble Guillen MD Lumbar Spine CT 07/25/172016 Signed Impressions: Service Date/Time: July 00:00 - CONCLUSION: 1. No evidence of lumbar fracture. 2. Mildly comminuted fracture of the anterior cortex of the left sacral ala. Humble Guillen MD Chest CT 07/25/172016 Signed Impressions: Service Date/Time: July 00:03 - CONCLUSION: 1. Moderate left pneumothorax without evidence of mediastinal shift. 2. Nondisplaced fractures of the left 7th and 8th ribs. Humble Guillen MD Cervical Spine CT 07/25/172016 Signed Impressions: Service Date/Time: Monday, July 24, 2017 23:56 - CONCLUSION: Negative trauma CT cervical spine other than mild reversal of the upper cervical lordosis. Humble Guillen MD Abdomen/Pelvis CT 07/25/172016 Signed Impressions: Service Date/Time: July 00:00 - CONCLUSION: 1. Grade 5 injury of the spleen with shattered appearance and significant hemoperitoneum. 2. Moderate left pneumothorax. 3. Fractures of the left pubic bone (horizontal ) and anterior cortex of the left sacral ala. Humble Guillen MD Humerus X-Ray 07/25/17 Signed Impressions: Service Date/Time: Monday, July 24, 2017 23:40 - CONCLUSION: Proximal humeral fracture with displacement and overriding. Humble Guillen MD Head CT 07/25/17 Signed Impressions: Service Date/Time: Monday, July 24, 2017 23:56 - CONCLUSION: 1. No acute findings in the brain. 2. Multiple facial bone fractures including bilateral maxilla and bilateral inferior orbits. Possible pterygoid plate fractures. Facial bone CT to follow. Humble Guillen MD Chest X-Ray 12/14/17 0000 Signed Impressions: Service Date/Time: July 02:27 - CONCLUSION: Left chest drainage tube in place. No pneumothorax seen. Humble Guillen MD Ankle X-Ray 07/25/17 0000 Signed Impressions: Service Date/Time: Monday, July 24, 2017 23:40 - CONCLUSION: No evidence of recent bony injury. 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 No retained instruments seen. Humble Guillen MD Pelvis X-Ray 07/24/17 2345 Signed Impressions: Service Date/Time: Monday, July 24, 2017 23:40 - CONCLUSION: No fracture seen. Humble Guillen MD Chest X-Ray 07/24/17 2345 Signed Impressions: Service Date/Time: Monday, July 24, 2017 23:40 - CONCLUSION: The lungs are clear. Humble Guillen MD Objective Remarks RUE: dressings clean and dry. intact. +sling. good cap refill, mild swelling, forarm compartments soft. LLE: dressings clean and dry. intact. Assessment & Plan Assessment and Plan 1) Right Proximal Humerus Fx s/p ORIF - POD 4 -NWB -maintain sling -daily dressing changes. ok to transition to xeroform/primapore if minimal drainage -therapy for PROM of shoulder and elbow 2) Left Foot Laceration s/p I&D and closure - POD 4 -daily dressing changes POD 2 with bacitracin/adaptik/4x4/DWAYNE -NWB until wound healed 3) facial fractures status post ORIF 4) Left Inferior Pubic Rami fx - nonop -WBAT 5) continue medical care. Sean Ragland/Casing Cleaner LYNETTE Jul 29, 2017 06:56
[2017-07-29] MEDS: CHLORHEXIDINE 0.12% (ORAL KIT) 15 ML CUP MT SCH (08:00)
[2017-07-29] MEDS: SODIUM CHLORIDE 0.9% FLUSH 10 ML FLUSH IV FLUSH SCH ×2 (08:40→21:00)
[2017-07-29] MEDS: CHOLECALCIFEROL (VIT D3) 1000 UNIT TAB PO SCH (08:40)
[2017-07-29] MEDS: POLYETHYLENE GLYCOL 17 GM PKG PO SCH (09:15)
[2017-07-29] MEDS ORDERED: LACTULOSE SYRUP 20 GM/30 ML CUP PO PRN (09:15)
[2017-07-29] MEDS: DOCUSATE SODIUM 50 MG/SENNA 8.6 MG TAB PO SCH ×2 (09:24→20:58)
[2017-07-29] MEDS: oxyCODONE/ACETAMINOPHEN 10 MG/325 MG TAB PO PRN ×2 (09:24→14:13)
[2017-07-29] MEDS: ENOXAPARIN SODIUM 40 MG/0.4 ML SYRINGE SQ SCH (10:32)
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
[2017-07-29] MEDS: LACTATED RINGER'S 1000 ML INJ 1,000 ML IV SCH (12:00)
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
[2017-07-29] MEDS ORDERED: MORPHINE SULFATE 4 MG/ML INJ IV PUSH PRN (14:30)
[2017-07-29] MEDS: oxyCODONE HCL ORAL CONC 5 MG/0.25 ML SYRINGE PO PRN ×3 (16:35→21:37)
[2017-07-29] MEDS: CHLORHEXIDINE GLUCONATE 0.12% 15 ML CUP SWISH-SPIT SCH (18:00)
[2017-07-30] VITALS (12 sets, daily range): BP systolic 143–153; BP diastolic 68–76; PULSE 68–84; RESP 13–25; TEMP 97.9–98.8; O2SAT 97–100
[2017-07-30] MEDS: PANTOPRAZOLE SODIUM 40 MG VIAL IV PUSH SCH (01:53)
[2017-07-30] MEDS: oxyCODONE HCL ORAL CONC 5 MG/0.25 ML SYRINGE PO PRN ×4 (03:18→21:44)
[2017-07-30] MEDS: LACTATED RINGER'S 1000 ML INJ 1,000 ML IV SCH (03:25)
[2017-07-30] MEDS: ACETAMINOPHEN 325 MG TAB PO PRN ×2 (03:47→18:01)
[2017-07-30] MEDS: diphenhydrAMINE HCL 25 MG CAP PO PRN (03:48)
[2017-07-30 04:04] LABS: AUTOMATED NEUTROPHIL # 11.2 TH/MM3 (1.8-7.7); BASOPHIL % 0.1 % (0.0-2.0); EOSINOPHIL # 0.1 TH/MM3 (0-0.4); EOSINOPHIL % 0.8 % (0.0-4.0); HEMATOCRIT 24.8 % (39.0-51.0); HEMO FLAGS DIFF FINAL; LYMPHOCYTE # 1.8 TH/MM3 (1.0-4.8); MEAN CORPUSCULAR HEMOGLOBIN 29.9 PG (27.0-34.0); MEAN CORPUSCULAR HGB CONC 34.4 % (32.0-36.0); MONO % 11.2 % (0.0-8.0); NEUT % 75.9 % (16.0-70.0); PLATELET COUNT 304 TH/MM3 (150-450); RED BLOOD COUNT 2.85 MIL/MM3 (4.50-5.90); RED CELL DISTRIBUTION WIDTH 13.6 % (11.6-17.2); WHITE BLOOD COUNT 14.8 TH/MM3 (4.0-11.0)
--- NOTE | 2017-07-30 06:26 | RADRPT ---
EXAM DATE/TIME: 07/30/2017 05:33 [facility] COMPARISON: CHEST SINGLE AP, July 29, 2017, 4:57. INDICATIONS : Chest tube removal. MEDICAL HISTORY : None. SURGICAL HISTORY : None. ENCOUNTER: Subsequent ACUITY: 4 - 6 days PAIN SCORE: Non-responsive. LOCATION: Bilateral chest FINDINGS: The previously seen left chest tube has been removed. The drain in the left upper quadrant has been r emoved. Clips are seen in the left upper quadrant. The heart size is normal. The lungs are clear. A p neumothorax is not seen. Surgical hardware seen at the right proximal humerus. CONCLUSION: No Pneumothorax. Martin France MD on July 30, 2017 at 6:24 Board Certified Radiologist. This report was verified electronically.
[2017-07-30] MEDS: DOCUSATE SODIUM 50 MG/SENNA 8.6 MG TAB PO SCH ×2 (08:56→21:00)
[2017-07-30] MEDS: CHOLECALCIFEROL (VIT D3) 1000 UNIT TAB PO SCH (08:56)
[2017-07-30] MEDS: ENOXAPARIN SODIUM 40 MG/0.4 ML SYRINGE SQ SCH (08:57)
[2017-07-30] MEDS: SODIUM CHLORIDE 0.9% FLUSH 10 ML FLUSH IV FLUSH SCH ×2 (09:00→21:47)
[2017-07-30] MEDS: CHLORHEXIDINE GLUCONATE 0.12% 15 ML CUP SWISH-SPIT SCH ×2 (09:00→18:00)
[2017-07-30] MEDS: POLYETHYLENE GLYCOL 17 GM PKG PO SCH ×2 (09:00→17:00)
[2017-07-30] MEDS: ONDANSETRON HCL 4 MG/2 ML VIAL IV PUSH PRN ×3 (09:02→21:43)
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
[2017-07-30] MEDS ORDERED: PERI PO (22:27)
[2017-07-30] MEDS ORDERED: MAGN30S PO (22:27)
[2017-07-30] MEDS ORDERED: WHEEMIS3 (22:30)
[2017-07-31] VITALS (7 sets, daily range): BP systolic 126–142; BP diastolic 66–77; PULSE 72–88; RESP 18–20; TEMP 96–98.5; O2SAT 97–99
[2017-07-31] MEDS: oxyCODONE HCL ORAL CONC 5 MG/0.25 ML SYRINGE PO PRN ×5 (02:08→22:33)
[2017-07-31] MEDS: PANTOPRAZOLE SODIUM 40 MG VIAL IV PUSH SCH (02:10)
[2017-07-31] MEDS: ONDANSETRON HCL 4 MG/2 ML VIAL IV PUSH PRN ×3 (05:33→22:32)
[2017-07-31] MEDS: LACTATED RINGER'S 1000 ML INJ 1,000 ML IV SCH ×2 (05:43→21:50)
[2017-07-31 06:26] LABS: AUTOMATED NEUTROPHIL # 13.7 TH/MM3 (1.8-7.7); BASOPHIL % 0.2 % (0.0-2.0); EOSINOPHIL # 0.1 TH/MM3 (0-0.4); EOSINOPHIL % 0.6 % (0.0-4.0); HEMATOCRIT 28.3 % (39.0-51.0); HEMO FLAGS DIFF FINAL; LYMPHOCYTE # 1.3 TH/MM3 (1.0-4.8); MEAN CELL VOLUME 87.6 FL (80.0-100.0); MEAN CORPUSCULAR HEMOGLOBIN 30.1 PG (27.0-34.0); MEAN CORPUSCULAR HGB CONC 34.3 % (32.0-36.0); MONO % 9.9 % (0.0-8.0); NEUT % 81.3 % (16.0-70.0); PLATELET COUNT 452 TH/MM3 (150-450); RED BLOOD COUNT 3.23 MIL/MM3 (4.50-5.90); RED CELL DISTRIBUTION WIDTH 13.6 % (11.6-17.2); WHITE BLOOD COUNT 16.8 TH/MM3 (4.0-11.0)
[2017-07-31 06:49] LABS: ALT (GPT) 35 U/L (9-52); ANION GAP 7 MEQ/L (5-15); AST (GOT) 25 U/L (15-39); BICARBONATE 27.9 MEQ/L (21.0-32.0); BLOOD UREA NITROGEN 16 MG/DL (7-18); CHLORIDE 102 MEQ/L (98-107); GLOMERULAR FILTRATION RATE 219 ML/MIN (>89); SODIUM (NA) 137 MEQ/L (136-145)
[2017-07-31 06:51] LABS: ALKALINE PHOSPHATASE 70 U/L (45-117); TOTAL BILIRUBIN ADULT 0.8 MG/DL (0.2-1.0)
[2017-07-31] MEDS: LACTULOSE SYRUP 20 GM/30 ML CUP PO SCH (06:56)
[2017-07-31] MEDS: MAGNESIUM HYDROXIDE SUSP 30 ML CUP PO SCH ×2 (06:58→21:00)
[2017-07-31] MEDS: DOCUSATE SODIUM 50 MG/SENNA 8.6 MG TAB PO SCH ×2 (09:00→21:00)
[2017-07-31] MEDS: SODIUM CHLORIDE 0.9% FLUSH 10 ML FLUSH IV FLUSH SCH ×2 (09:00→21:00)
[2017-07-31] MEDS: ENOXAPARIN SODIUM 40 MG/0.4 ML SYRINGE SQ SCH (09:22)
[2017-07-31] MEDS: CHOLECALCIFEROL (VIT D3) 1000 UNIT TAB PO SCH (09:22)
[2017-07-31] MEDS: fentaNYL 50 MCG/HR PATCH T-DERMAL SCH (09:23)
[2017-07-31] MEDS: CHLORHEXIDINE GLUCONATE 0.12% 15 ML CUP SWISH-SPIT SCH ×2 (10:47→17:51)
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
[2017-07-31] MEDS ORDERED: MORPHINE SULFATE 2 MG/ML INJ IV PUSH PRN (21:30)
[2017-08-01] VITALS: BP 135/60; PULSE 74; RESP 20; TEMP 98; O2SAT 97
[2017-08-01] MEDS: PANTOPRAZOLE SODIUM 40 MG VIAL IV PUSH SCH (02:51)
[2017-08-01 04:00] VITALS: BP 132/69; PULSE 80; RESP 20; TEMP 98.2; O2SAT 99
[2017-08-01] MEDS ORDERED: HYDR-3583 PO (06:44)
--- NOTE | 2017-08-01 06:47 | PD.ORT.PN ---
Subjective Subjective Remarks Pain controlled and progressing with activities Objective Vitals Vital Signs Date Time Temp Pulse Resp B/P (MAP) Pulse Ox O2 Delivery O2 Flow Rate FiO2 08/01/17 04:00 98.2 80 20 132/69 (90) 99 08/01/17 00:00 98.0 74 20 135/60 (85) 97 07/31/17 20:00 96.9 76 20 126/69 (88) 98 07/31/17 18:12 99 21 07/31/17 16:00 97.3 72 18 134/66 (88) 99 07/31/17 12:22 18 07/31/17 12:00 98 07/31/17 12:00 98.1 88 18 129/77 (94) 98 07/31/17 10:23 18 07/31/17 07:42 96.0 77 19 131/76 (94) 97 I/O 07/31/17 07/31/17 07/31/17 08/01/17 08/01/17 08/01/17 07:00 15:00 23:00 07:00 15:00 23:00 Intake Total 578 ml 800 ml 480 ml Output Total 1200 ml 1625 ml Balance -622 ml 800 ml -1145 ml Intake Oral 60 ml 800 ml 480 ml IV Total 518 ml Output Urine Total 1200 ml 1625 ml # Voids 2 # Bowel Movements 0 0 Result Diagram: 07/31/17 0545 07/31/17 0545 Imaging Last 24 hours Impressions Thoracic Spine CT 07/25/172016 Signed Impressions: Service Date/Time: July 00:03 - CONCLUSION: Negative trauma CT thoracic spine. Humble Guillen MD Maxillofacial CT 07/25/172016 Signed Impressions: Service Date/Time: Monday, July 24, 2017 23:56 - CONCLUSION: LeFort III bilateral facial fractures Humble Guillen MD Lumbar Spine CT 07/25/172016 Signed Impressions: Service Date/Time: July 00:00 - CONCLUSION: 1. No evidence of lumbar fracture. 2. Mildly comminuted fracture of the anterior cortex of the left sacral ala. Humble Guillen MD Chest CT 07/25/172016 Signed Impressions: Service Date/Time: July 00:03 - CONCLUSION: 1. Moderate left pneumothorax without evidence of mediastinal shift. 2. Nondisplaced fractures of the left 7th and 8th ribs. Humble Guillen MD Cervical Spine CT 07/25/17 0001 Signed Impressions: Service Date/Time: Monday, July 24, 2017 23:56 - CONCLUSION: Negative trauma CT cervical spine other than mild reversal of the upper cervical lordosis. Humble Guillen MD Abdomen/Pelvis CT 07/25/17 0001 Signed Impressions: Service Date/Time: July 00:00 - CONCLUSION: 1. Grade 5 injury of the spleen with shattered appearance and significant hemoperitoneum. 2. Moderate left pneumothorax. 3. Fractures of the left pubic bone (horizontal ) and anterior cortex of the left sacral ala. Humble Guillen MD Humerus X-Ray 07/25/17 0000 Signed Impressions: Service Date/Time: Monday, July 24, 2017 23:40 - CONCLUSION: Proximal humeral fracture with displacement and overriding. Humble Guillen MD Head CT 07/25/17 0000 Signed Impressions: Service Date/Time: Monday, July 24, 2017 23:56 - CONCLUSION: 1. No acute findings in the brain. 2. Multiple facial bone fractures including bilateral maxilla and bilateral inferior orbits. Possible pterygoid plate fractures. Facial bone CT to follow. Humble Guillen MD Chest X-Ray 07/25/17 0000 Signed Impressions: Service Date/Time: July 02:27 - CONCLUSION: Left chest drainage tube in place. No pneumothorax seen. Humble Guillen MD Ankle X-Ray 07/25/17 0000 Signed Impressions: Service Date/Time: Monday, July 24, 2017 23:40 - CONCLUSION: No evidence of recent bony injury. 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 No retained instruments seen. Humble Guillen MD Pelvis X-Ray 07/24/17 2345 Signed Impressions: Service Date/Time: Monday, July 24, 2017 23:40 - CONCLUSION: No fracture seen. Humble Guillen MD Chest X-Ray 07/24/17 4062 Signed Impressions: Service Date/Time: Monday, July 24, 2017 23:40 - CONCLUSION: The lungs are clear. Humble Guillen MD Objective Remarks RUE: dressings clean and dry. intact. +sling. good cap refill, mild swelling, forearm compartments soft. LLE: dressings clean and dry. intact. Assessment & Plan Assessment and Plan 1) Right Proximal Humerus Fx s/p ORIF - POD 7 -NWB -maintain sling -daily dressing changes. ok to transition to xeroform/primapore if minimal drainage -therapy for PROM of shoulder and elbow 2) Left Foot Laceration s/p I&D and closure - POD 7 -daily dressing changes with bacitracin/adaptik/4x4/DWAYNE -NWB until wound healed 3) facial fractures status post ORIF 4) Left Inferior Pubic Rami fx - nonop -WBAT 5) continue medical care. Manuel Alberts Jr. Aug 01, 2017 06:47
[2017-08-01] MEDS: oxyCODONE HCL ORAL CONC 5 MG/0.25 ML SYRINGE PO PRN (06:59)
[2017-08-01] MEDS ORDERED: BISACODYL EC 5 MG TABEC PO ONE (07:00)
[2017-08-01] MEDS ORDERED: BISACODYL 10 MG SUPP RECTAL ONE (07:00)
[2017-08-01 08:00] VITALS: BP 113/60; PULSE 72; RESP 18; TEMP 97.5; O2SAT 99
[2017-08-01] MEDS: MAGNESIUM HYDROXIDE SUSP 30 ML CUP PO SCH ×2 (09:00→21:00)
[2017-08-01] MEDS: SODIUM CHLORIDE 0.9% FLUSH 10 ML FLUSH IV FLUSH SCH (09:00)
[2017-08-01] MEDS: POLYETHYLENE GLYCOL 17 GM PKG PO SCH (09:00)
[2017-08-01] MEDS: LACTULOSE SYRUP 20 GM/30 ML CUP PO SCH (09:00)
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
[2017-08-01] MEDS: CHLORHEXIDINE GLUCONATE 0.12% 15 ML CUP SWISH-SPIT SCH ×2 (10:29→18:00)
[2017-08-01] MEDS: CHOLECALCIFEROL (VIT D3) 1000 UNIT TAB PO SCH (10:30)
[2017-08-01] MEDS: ENOXAPARIN SODIUM 40 MG/0.4 ML SYRINGE SQ SCH (10:30)
[2017-08-01] MEDS: DOCUSATE SODIUM 50 MG/SENNA 8.6 MG TAB PO SCH ×2 (10:32→21:00)
[2017-08-01 12:00] VITALS: BP 114/68; PULSE 71; RESP 18; TEMP 96.2; O2SAT 99
[2017-08-01] MEDS: LACTATED RINGER'S 1000 ML INJ 1,000 ML IV SCH (14:30)
[2017-08-01 16:00] VITALS: BP 112/58; PULSE 85; RESP 18; TEMP 98.8; O2SAT 100
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
[2017-08-01] MEDS: GABAPENTIN 300 MG CAP PO SCH (18:00)
[2017-08-01 20:00] VITALS: BP 103/68; PULSE 100; RESP 16; TEMP 98.3; O2SAT 97
--- NOTE | 2017-08-01 22:13 | HHI.FF ---
Face to Face Verification Diagnosis: (1) Pneumothorax (2) Hemoperitoneum (3) Humerus fracture (4) Sacral fracture, closed (5) Foot laceration (6) Liver laceration (7) Splenic laceration (8) Bilateral orbit fractures Physical Therapy Order: Evaluate and Treat, Improve ambulation, Strength and gait training Occupational Therapy Order: Evaluate and Treat, Improve ADL, Gross motor coordination, Fine motor coordination Home Health Nursing Order: Medical education Signs/symptoms of disease process Medication education-adverse effect Nursing assessment with vital signs I have seen patient Casa Sexton HamiltonROBERTO on 08/01/17. My clinical findings support the need for the requested home health care services because: Ltd mobility - disease progression Deconditioned w/ increased weakness Limited ability to care for self High risk of falls I certify that my clinical findings support that this patient is homebound because: Post-op weakness Unsteady gait/balance Unsafe to leave home unassisted Nre-[id number]-ivrhkbpu bed/chair Unable to use public transportation Sandra Lynch Aug 01, 2017 22:13
[2017-08-02] VITALS: BP 116/83; PULSE 96; RESP 18; TEMP 99; O2SAT 100
[2017-08-02] MEDS: oxyCODONE HCL ORAL CONC 5 MG/0.25 ML SYRINGE PO PRN ×4 (00:57→23:45)
[2017-08-02] MEDS: PANTOPRAZOLE SODIUM 40 MG VIAL IV PUSH SCH (00:57)
[2017-08-02] MEDS: SODIUM CHLORIDE 0.9% FLUSH 10 ML FLUSH IV FLUSH SCH ×3 (00:58→21:00)
[2017-08-02] MEDS: MAGNESIUM HYDROXIDE SUSP 30 ML CUP PO SCH ×2 (06:19→21:00)
[2017-08-02] MEDS: LACTATED RINGER'S 1000 ML INJ 1,000 ML IV SCH (07:10)
--- NOTE | 2017-08-02 07:10 | PD.ORT.PN ---
Subjective Subjective Remarks Pain controlled and progressing with activities Objective Vitals Vital Signs Date Time Temp Pulse Resp B/P (MAP) Pulse Ox O2 Delivery O2 Flow Rate FiO2 08/02/17 00:00 99.0 96 18 116/83 (94) 100 08/01/17 20:00 98.3 100 16 103/68 (80) 97 08/01/17 19:14 Room Air 08/01/17 16:00 98.8 85 18 112/58 (76) 100 08/01/17 12:00 96.2 71 18 114/68 (83) 99 08/01/17 08:00 97.5 72 18 113/60 (77) 99 I/O 08/01/17 08/01/17 08/01/17 08/02/17 08/02/17 08/02/17 07:00 15:00 23:00 07:00 15:00 23:00 Intake Total 480 ml 650 ml 480 ml 240 ml Output Total 1625 ml 600 ml Balance -1145 ml 650 ml -120 ml 240 ml Intake Oral 480 ml 650 ml 480 ml 240 ml Output Urine Total 1625 ml 600 ml # Voids 3 1 # Bowel Movements 1 1 0 Result Diagram: 07/31/17 0545 07/31/17 0545 Imaging Last 24 hours Impressions Thoracic Spine CT 07/25/172016 Signed Impressions: Service Date/Time: July 00:03 - CONCLUSION: Negative trauma CT thoracic spine. Humble Guillen MD Maxillofacial CT 07/25/172016 Signed Impressions: Service Date/Time: Monday, July 24, 2017 23:56 - CONCLUSION: LeFort III bilateral facial fractures Humble Guillen MD Lumbar Spine CT 07/25/172016 Signed Impressions: Service Date/Time: July 00:00 - CONCLUSION: 1. No evidence of lumbar fracture. 2. Mildly comminuted fracture of the anterior cortex of the left sacral ala. Humble Guillen MD Chest CT 07/25/172016 Signed Impressions: Service Date/Time: July 00:03 - CONCLUSION: 1. Moderate left pneumothorax without evidence of mediastinal shift. 2. Nondisplaced fractures of the left 7th and 8th ribs. Humble Guillen MD Cervical Spine CT 12/14/17 0001 Signed Impressions: Service Date/Time: Monday, July 24, 2017 23:56 - CONCLUSION: Negative trauma CT cervical spine other than mild reversal of the upper cervical lordosis. Humble Guillen MD Abdomen/Pelvis CT 07/25/17 0001 Signed Impressions: Service Date/Time: July 00:00 - CONCLUSION: 1. Grade 5 injury of the spleen with shattered appearance and significant hemoperitoneum. 2. Moderate left pneumothorax. 3. Fractures of the left pubic bone (horizontal ) and anterior cortex of the left sacral ala. Humble Guillen MD Humerus X-Ray 07/25/17 0000 Signed Impressions: Service Date/Time: Monday, July 24, 2017 23:40 - CONCLUSION: Proximal humeral fracture with displacement and overriding. Humble Guillen MD Head CT 07/25/17 0000 Signed Impressions: Service Date/Time: Monday, July 24, 2017 23:56 - CONCLUSION: 1. No acute findings in the brain. 2. Multiple facial bone fractures including bilateral maxilla and bilateral inferior orbits. Possible pterygoid plate fractures. Facial bone CT to follow. Humble Guillen MD Chest X-Ray 07/25/17 0000 Signed Impressions: Service Date/Time: July 02:27 - CONCLUSION: Left chest drainage tube in place. No pneumothorax seen. Humble Guillen MD Ankle X-Ray 07/25/17 0000 Signed Impressions: Service Date/Time: Monday, July 24, 2017 23:40 - CONCLUSION: No evidence of recent bony injury. 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 No retained instruments seen. Humble Guillen MD Pelvis X-Ray 07/24/175 Signed Impressions: Service Date/Time: Monday, July 24, 2017 23:40 - CONCLUSION: No fracture seen. Humble Guillen MD Chest X-Ray 07/24/17 2345 Signed Impressions: Service Date/Time: Monday, July 24, 2017 23:40 - CONCLUSION: The lungs are clear. Humble Guillen MD Objective Remarks RUE: dressings clean and dry. intact. +sling. good cap refill, mild swelling, forearm compartments soft. LLE: dressings clean and dry. intact. Mild pain to palpation over pelvis Assessment & Plan Assessment and Plan 1) Right Proximal Humerus Fx s/p ORIF - POD 8 -NWB -maintain sling -daily dressing changes. ok to transition to xeroform/primapore if minimal drainage -therapy for PROM of shoulder and elbow 2) Left Foot Laceration s/p I&D and closure - POD 8 -daily dressing changes with bacitracin/adaptik/4x4/DWAYNE -NWB until wound healed 3) facial fractures status post ORIF 4) Left Inferior Pubic Rami fx - nonop -WBAT Continue with discharge plan to rehabilitation.. Follow-up in approximately 10 days Manuel Alberts Jr. Aug 02, 2017 07:09
[2017-08-02 08:00] VITALS: BP 109/62; PULSE 75; RESP 16; TEMP 97.9; O2SAT 99
[2017-08-02] MEDS: CHLORHEXIDINE GLUCONATE 0.12% 15 ML CUP SWISH-SPIT SCH ×2 (08:42→17:36)
[2017-08-02] MEDS: POLYETHYLENE GLYCOL 17 GM PKG PO SCH (08:42)
[2017-08-02] MEDS: DOCUSATE SODIUM 50 MG/SENNA 8.6 MG TAB PO SCH ×2 (08:42→21:00)
[2017-08-02] MEDS: CHOLECALCIFEROL (VIT D3) 1000 UNIT TAB PO SCH (08:42)
[2017-08-02] MEDS: GABAPENTIN 300 MG CAP PO SCH ×3 (08:42→18:00)
[2017-08-02] MEDS: LACTULOSE SYRUP 20 GM/30 ML CUP PO SCH (08:43)
[2017-08-02] MEDS: ENOXAPARIN SODIUM 40 MG/0.4 ML SYRINGE SQ SCH (10:24)
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
[2017-08-02 12:00] VITALS: BP 117/51; PULSE 77; RESP 16; TEMP 96.7; O2SAT 98
[2017-08-02] MEDS ORDERED: COMMODE 3-IN-11 MIS (12:28)
[2017-08-02] MEDS ORDERED: WALKER WHEELS/F1 MIS (12:28)
[2017-08-02 13:23] LABS: AUTOMATED NEUTROPHIL # 9.3 TH/MM3 (1.8-7.7); BASOPHIL % 0.4 % (0.0-2.0); EOSINOPHIL # 0.2 TH/MM3 (0-0.4); EOSINOPHIL % 1.7 % (0.0-4.0); HEMATOCRIT 31.2 % (39.0-51.0); HEMO FLAGS DIFF FINAL; LYMPH % 11.5 % (9.0-44.0); LYMPHOCYTE # 1.5 TH/MM3 (1.0-4.8); MEAN CELL VOLUME 88.5 FL (80.0-100.0); MEAN CORPUSCULAR HEMOGLOBIN 30.3 PG (27.0-34.0); MEAN CORPUSCULAR HGB CONC 34.2 % (32.0-36.0); MONO % 14.3 % (0.0-8.0); NEUT % 72.1 % (16.0-70.0); PLATELET COUNT 801 TH/MM3 (150-450); RED BLOOD COUNT 3.53 MIL/MM3 (4.50-5.90); RED CELL DISTRIBUTION WIDTH 14.3 % (11.6-17.2); WHITE BLOOD COUNT 12.9 TH/MM3 (4.0-11.0)
[2017-08-02 13:48] LABS: ALKALINE PHOSPHATASE 85 U/L (45-117); ALT (GPT) 29 U/L (9-52); ANION GAP 4 MEQ/L (5-15); AST (GOT) 17 U/L (15-39); BICARBONATE 30.7 MEQ/L (21.0-32.0); BLOOD UREA NITROGEN 14 MG/DL (7-18); CHLORIDE 102 MEQ/L (98-107); GLOMERULAR FILTRATION RATE 184 ML/MIN (>89); POTASSIUM 4.2 MEQ/L (3.5-5.1); SODIUM (NA) 137 MEQ/L (136-145); TOTAL BILIRUBIN ADULT 0.8 MG/DL (0.2-1.0)
[2017-08-02 16:00] VITALS: BP 114/62; PULSE 86; RESP 18; TEMP 98; O2SAT 100
[2017-08-02] MEDS: ERGOCALCIFEROL (VIT D2) 50,000 UNIT CAP PO SCH (17:37)
[2017-08-02 20:00] VITALS: BP 131/79; PULSE 95; RESP 18; TEMP 98.1; O2SAT 99
[2017-08-02 22:30] VITALS: BP 117/67; PULSE 86; RESP 20; TEMP 96.1; O2SAT 100
[2017-08-03] MEDS: oxyCODONE HCL ORAL CONC 5 MG/0.25 ML SYRINGE PO PRN ×2 (03:42→09:30)
[2017-08-03 05:24] LABS: AUTOMATED NEUTROPHIL # 8.8 TH/MM3 (1.8-7.7); BASOPHIL # 0.1 TH/MM3 (0-0.2); BASOPHIL % 0.5 % (0.0-2.0); EOSINOPHIL # 0.4 TH/MM3 (0-0.4); EOSINOPHIL % 2.8 % (0.0-4.0); HEMATOCRIT 31.8 % (39.0-51.0); HEMO FLAGS DIFF FINAL; LYMPHOCYTE # 1.6 TH/MM3 (1.0-4.8); MEAN CELL VOLUME 88.7 FL (80.0-100.0); MEAN CORPUSCULAR HEMOGLOBIN 30.5 PG (27.0-34.0); MEAN CORPUSCULAR HGB CONC 34.4 % (32.0-36.0); MONO % 13.9 % (0.0-8.0); NEUT % 69.8 % (16.0-70.0); PLATELET COUNT 845 TH/MM3 (150-450); RED BLOOD COUNT 3.59 MIL/MM3 (4.50-5.90); RED CELL DISTRIBUTION WIDTH 13.9 % (11.6-17.2); WHITE BLOOD COUNT 12.6 TH/MM3 (4.0-11.0)
[2017-08-03 05:34] LABS: BICARBONATE 29.1 MEQ/L (21.0-32.0); POTASSIUM 4.2 MEQ/L (3.5-5.1)
[2017-08-03] MEDS ORDERED: WALKER/FOLDING1 MIS (07:44)
[2017-08-03 08:00] VITALS: BP 110/64; PULSE 75; RESP 18; TEMP 95.6; O2SAT 100
[2017-08-03] MEDS: GABAPENTIN 300 MG CAP PO SCH ×2 (09:00→10:27)
[2017-08-03] MEDS: SODIUM CHLORIDE 0.9% FLUSH 10 ML FLUSH IV FLUSH SCH ×2 (09:00→21:00)
[2017-08-03] MEDS: CHOLECALCIFEROL (VIT D3) 1000 UNIT TAB PO SCH (09:29)
[2017-08-03] MEDS: FAMOTIDINE 20 MG TAB PO SCH ×2 (09:29→22:25)
[2017-08-03] MEDS: DOCUSATE SODIUM 50 MG/SENNA 8.6 MG TAB PO SCH ×2 (09:29→21:00)
[2017-08-03] MEDS: ENOXAPARIN SODIUM 40 MG/0.4 ML SYRINGE SQ SCH (09:30)
[2017-08-03] MEDS: CHLORHEXIDINE GLUCONATE 0.12% 15 ML CUP SWISH-SPIT SCH ×2 (09:30→17:16)
[2017-08-03] MEDS: fentaNYL 50 MCG/HR PATCH T-DERMAL SCH (09:31)
[2017-08-03] MEDS: POLYETHYLENE GLYCOL 17 GM PKG PO SCH (09:31)
[2017-08-03] MEDS: LACTULOSE SYRUP 20 GM/30 ML CUP PO SCH (09:34)
[2017-08-03] MEDS: MAGNESIUM HYDROXIDE SUSP 30 ML CUP PO SCH ×2 (09:34→22:26)
[2017-08-03 12:05] VITALS: BP 109/66; PULSE 75; RESP 18; TEMP 95.5; O2SAT 100
[2017-08-03 12:06] VITALS: O2SAT 100
[2017-08-03] MEDS ORDERED: GABAPENTIN 300 MG CAP PO PRN (12:15)
[2017-08-03] MEDS ORDERED: oxyCODONE/ACETAMINOPHEN 5 MG/325 MG TAB PO PRN (12:15)
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
[2017-08-03] MEDS: oxyCODONE/ACETAMINOPHEN 10 MG/325 MG TAB PO PRN ×2 (13:34→23:52)
[2017-08-03] MEDS ORDERED: fentaNYL 25 MCG/HR PATCH T-DERMAL SCH (15:00)
[2017-08-03 16:00] VITALS: BP 117/65; PULSE 18; RESP 18; TEMP 95.8; O2SAT 100
[2017-08-03 20:11] VITALS: BP 122/74; PULSE 76; RESP 18; TEMP 96.7; O2SAT 98
[2017-08-04 00:06] VITALS: BP 125/69; PULSE 73; RESP 18; TEMP 96.9; O2SAT 99
[2017-08-04] MEDS: POLYETHYLENE GLYCOL 17 GM PKG PO SCH (08:58)
[2017-08-04] MEDS: DOCUSATE SODIUM 50 MG/SENNA 8.6 MG TAB PO SCH (08:58)
[2017-08-04] MEDS: LACTULOSE SYRUP 20 GM/30 ML CUP PO SCH (08:58)
[2017-08-04] MEDS: CHOLECALCIFEROL (VIT D3) 1000 UNIT TAB PO SCH (08:59)
[2017-08-04] MEDS: MAGNESIUM HYDROXIDE SUSP 30 ML CUP PO SCH (08:59)
[2017-08-04] MEDS: oxyCODONE/ACETAMINOPHEN 10 MG/325 MG TAB PO PRN ×2 (08:59→13:24)
[2017-08-04] MEDS: CHLORHEXIDINE GLUCONATE 0.12% 15 ML CUP SWISH-SPIT SCH (09:00)
[2017-08-04] MEDS: FAMOTIDINE 20 MG TAB PO SCH (09:00)
[2017-08-04] MEDS: SODIUM CHLORIDE 0.9% FLUSH 10 ML FLUSH IV FLUSH SCH (09:00)
[2017-08-04] MEDS: ENOXAPARIN SODIUM 40 MG/0.4 ML SYRINGE SQ SCH (10:00)
[2017-08-04] MEDS ORDERED: MENINGOCOCCAL CONJUGATE VACCINE 0.5 ML VIAL IM ONE (10:15)
[2017-08-04] MEDS ORDERED: PNEUMOCOCCAL POLYVALENT INJ 25 MCG/0.5 ML SYR IM ONE (10:15)
[2017-08-04] MEDS ORDERED: HAEMOPH B POLYSACCH CONJ VACCINE 0.5 ML VIAL IM ONE (10:15)
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
[2017-08-06] MEDS ORDERED: REMOVE OLD DURAGESIC (FENTANYL) PATCH T-DERMAL SCH (15:00)
== END 2017-08-04 15:42 | disposition home or self-care (01) | DRG 957 ==
LOC: NEPI 23:41 → NEDA 07-25 00:02 → N03A 07-25 02:03 → N06B 07-30 20:59 → N06A 07-31 19:39
PROVIDERS: ADMIT Surgery; ATTEND Surgery
PROC: 0WJP0ZZ Inspection of Gastrointestinal Tract, Open Approach (ICD-10-PCS; 2017-07-25)
PROC: 0WJG0ZZ Inspection of Peritoneal Cavity, Open Approach (ICD-10-PCS; 2017-07-25)
PROC: 0WJJ0ZZ Inspection of Pelvic Cavity, Open Approach (ICD-10-PCS; 2017-07-25)
PROC: 0W3J0ZZ Control Bleeding in Pelvic Cavity, Open Approach (ICD-10-PCS; 2017-07-25)
PROC: 0DBU0ZZ Excision of Omentum, Open Approach (ICD-10-PCS; 2017-07-25)
PROC: 0FQG0ZZ Repair Pancreas, Open Approach (ICD-10-PCS; 2017-07-25)
PROC: 30233K1 Transfusion of Nonautologous Frozen Plasma into Peripheral Vein, Percutaneous Approach (ICD-10-PCS; 2017-07-25)
PROC: 30233N1 Transfusion of Nonautologous Red Blood Cells into Peripheral Vein, Percutaneous Approach (ICD-10-PCS; 2017-07-25)
PROC: 5A1945Z Respiratory Ventilation, 24-96 Consecutive Hours (ICD-10-PCS; 2017-07-25)
PROC: 0W9B30Z Drainage of Left Pleural Cavity with Drainage Device, Percutaneous Approach (ICD-10-PCS; 2017-07-25)
PROC: 07TP0ZZ Resection of Spleen, Open Approach (ICD-10-PCS; principal; 2017-07-25 00:20)
PROC: 0PSF04Z Reposition Right Humeral Shaft with Internal Fixation Device, Open Approach (ICD-10-PCS; 2017-07-26)
PROC: 0KBW0ZZ Excision of Left Foot Muscle, Open Approach (ICD-10-PCS; 2017-07-26)
PROC: 0JQR0ZZ Repair Left Foot Subcutaneous Tissue and Fascia, Open Approach (ICD-10-PCS; 2017-07-26)
PROC: 0NSN04Z Reposition Left Zygomatic Bone with Internal Fixation Device, Open Approach (ICD-10-PCS; 2017-07-27)
PROC: 0NSR04Z Reposition Maxilla with Internal Fixation Device, Open Approach (ICD-10-PCS; 2017-07-27)
PROC: 09Q00ZZ Repair Right External Ear, Open Approach (ICD-10-PCS; 2017-07-27)
PROC: 0CQ10ZZ Repair Lower Lip, Open Approach (ICD-10-PCS; 2017-07-27)
PROC: 0NSBXZZ Reposition Nasal Bone, External Approach (ICD-10-PCS; 2017-07-27)
PROC: 09B00ZZ Excision of Right External Ear, Open Approach (ICD-10-PCS; 2017-07-27)
DX: S36.032A Major laceration of spleen, initial encounter (principal); T79.4XXA Traumatic shock, initial encounter; S27.0XXA Traumatic pneumothorax, initial encounter; S32.592A Other specified fracture of left pubis, initial encounter for closed fracture; S02.411A LeFort I fracture, initial encounter for closed fracture; J95.821 Acute postprocedural respiratory failure; Z99.11 Dependence on respirator [ventilator] status; S36.113A Laceration of liver, unspecified degree, initial encounter; S32.10XA Unspecified fracture of sacrum, initial encounter for closed fracture; T17.920A Food in respiratory tract, part unspecified causing asphyxiation, initial encounter; S36.521A Contusion of transverse colon, initial encounter; S42.351A Displaced comminuted fracture of shaft of humerus, right arm, initial encounter for closed fracture; S42.201A Unspecified fracture of upper end of right humerus, initial encounter for closed fracture; S27.321A Contusion of lung, unilateral, initial encounter; S36.893A Laceration of other intra-abdominal organs, initial encounter; S36.232A Laceration of tail of pancreas, unspecified degree, initial encounter; S36.522A Contusion of descending [left] colon, initial encounter; S02.40DA Maxillary fracture, left side, initial encounter for closed fracture; S02.19XA Other fracture of base of skull, initial encounter for closed fracture; S02.40FA Zygomatic fracture, left side, initial encounter for closed fracture; S02.82XA Fracture of other specified skull and facial bones, left side, initial encounter for closed fracture; S02.81XA Fracture of other specified skull and facial bones, right side, initial encounter for closed fracture; S22.42XA Multiple fractures of ribs, left side, initial encounter for closed fracture; S37.019A Minor contusion of unspecified kidney, initial encounter; S01.311A Laceration without foreign body of right ear, initial encounter; S01.511A Laceration without foreign body of lip, initial encounter; V29.49XA Motorcycle driver injured in collision with other motor vehicles in traffic accident, initial encounter; Y92.488 Other paved roadways as the place of occurrence of the external cause; Y93.89 Activity, other specified; F12.90 Cannabis use, unspecified, uncomplicated; S91.312A Laceration without foreign body, left foot, initial encounter; H53.2 Diplopia; S06.0X0A Concussion without loss of consciousness, initial encounter; S02.2XXA Fracture of nasal bones, initial encounter for closed fracture; H11.32 Conjunctival hemorrhage, left eye; E86.1 Hypovolemia; Z23 Encounter for immunization
CPT/HCPCS: 36430; 36556; 70450; 70486; 71010; 71260; 72125; 72129; 72132; 72170; 73060; 73610; 73630; 74000; 74177; 76000; 76377; 80048; 80053; 80076; 80307; 81001; 82435; 82565; 82805; 82947; 83735; 84100; 84132; 84155; 84295; 84520; 85007; 85014; 85018; 85025; 85027; 85610; 85730; 86850; 86900; 86901; 86920; 86927; 87040; 87086; 87641; 88305; 90471; 90732; 90734; 93005; 94002; 94003; 94150; 94640; 94664; 96374; 99291; C1713; C9113; G0390; J0131; J0330; J0690; J1040; J1100; J1170; J1580; J1644; J1650; J1885; J1940; J2250; J2270; J2370; J2405; J2930; J3010; J3370; J7030; J7050; J7060; J7120; P9016; P9017; Q9967

== ENCOUNTER 2017-08-07 12:37 | Emergency (ER) | payer MEDICAID ==
[~2017-08-07] VITALS: Ht 182.9 cm; Wt 58.0 kg
[~2017-08-07 12:37] MED LIST changes: +COMMODE 3-IN-11 MIS; +HYDR-3583 PO; +MAGN30S PO; +PERI PO; +WALKER WHEELS/F1 MIS; +WALKER/FOLDING1 MIS; +WHEEMIS3
[2017-08-07 12:41] VITALS: BP 138/69; PULSE 97; RESP 16; TEMP 98.3; O2SAT 98
[2017-08-07] MEDS ORDERED: CLIN300C5 PO (14:49)
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
== END 2017-08-07 15:18 | disposition home or self-care (01) ==
LOC: PHEFT 12:37
DX: L08.9 Local infection of the skin and subcutaneous tissue, unspecified (principal)
CPT/HCPCS: 99281